=== PATIENT | female | born 1960 | race Caucasian/White ===

== ENCOUNTER 2016-11-12 07:37 | Emergency (ER) | payer OTHER ==
[2016-11-12 07:42] VITALS: RESP 17
--- NOTE | 2016-11-12 08:01 | EDPHY ---
H & P Stated Complaint: bit by her puppy 2nd digit r hand Time Seen by Provider: 11/12/16 07:44 HPI/ROS: CHIEF COMPLAINT: Dog bite HISTORY OF PRESENT ILLNESS: The patient presents to the ED with a dog bite to her right hand. She was bit by her puppy at home. The patient denies any numbness or weakness. She sustained a laceration to her right 2nd finger on the dorsal surface in between the ED IP and PIP. She denies additional acute complaints. Her tetanus shot is up-to-date. REVIEW OF SYSTEMS: A comprehensive 10 point review of systems is otherwise negative aside from elements mentioned in the history of present illness. Source: Patient Exam Limitations: No limitations - Personal History LMP (Females 10-55): Over 28 Days Ago Current Tetanus/Diphtheria Vaccine: Yes - Medical/Surgical History Hx Asthma: Yes Hx Chronic Respiratory Disease: No Hx Diabetes: No Hx Cardiac Disease: No Hx Renal Disease: No Hx Cirrhosis: No Hx Alcoholism: No Hx HIV/AIDS: No Hx Splenectomy or Spleen Trauma: No Other PMH: c sect - Social History Smoking Status: Never smoked - Physical Exam Exam: General: No acute distress Right hand: 1 cm laceration noted in between the DIP and PIP joint on the palmar aspect of the right 2nd finger. Neuro: Sensation intact to light touch Vascular: Normal capillary refill Constitutional: Initial Vital Signs Temperature (C) 36.9 C 11/12/16 07:40 Heart Rate 83 11/12/16 07:40 Respiratory Rate 17 11/12/16 07:40 Blood Pressure 136/89 H 11/12/16 07:40 O2 Sat (%) 98 11/12/16 07:40 O2 Delivery Mode Room Air Allergies/Adverse Reactions: amoxicillin Allergy (Verified 11/12/16 07:39) Home Medications: Medication Instructions Recorded Brianne Allergy 11/12/16 Celexa 11/12/16 Singulair 11/12/16 levOFLOXACIN [levAQUIN (*)] 750 mg PO DAILY #10 tab 11/12/16 metroNIDAZOLE [Flagyl 500 mg (*)] 500 mg PO TID #30 tab 11/12/16 Medical Decision Making Procedures: Procedure: Laceration repair. Verbal consent was obtained from the patient. The 1 cm laceration on the right 2nd finger was anesthetized using bupivacaine. The wound was irrigated copiously, draped and explored. There were no deep structures involved. No tendon injury was identified. The wound was repaired with 3 5-0 Ethilon sutures. The wound repair was simple. The procedure was performed by myself. ED Course/Re-evaluation: The patient presents to the ED with a dog bite/laceration to the right 2nd finger. Patient had her wound anesthetized with bupivacaine. Wound was copiously irrigated with a 18 gauge angiocatheter. Patient did undergo primary closure in the emergency department. The patient has been informed that this is a higher risk wound for infection. I have explained to her that there is no difference in outcomes between primary closure and delayed primary closure and that the risk of infection has been estimated to be 7-8%. The patient is allergic to amoxicillin. She will be started on Levaquin and Flagyl. The patient is advised to return to the ED immediately for any increased pain, redness, swelling, fever or other concerns as this may be the sign of an infection. Additionally, the patient will have her sutures removed in 12 days. The patient was placed in aluminum foam splint to the emergency department. Differential Diagnosis: Differential diagnosis considered includes laceration, nerve injury, tendon injury - Data Points Medications Given: Discontinued Medications Levofloxacin (Levaquin) 750 mg PO EDNOW ONE PRN Reason: Protocol Stop: 11/12/16 08:04 Last Admin: 11/12/16 08:40 Dose: 750 mg Metronidazole (Flagyl) 500 mg PO EDNOW ONE PRN Reason: Protocol Stop: 11/12/16 08:04 Last Admin: 11/12/16 08:41 Dose: 500 mg Departure - Departure Disposition: Home, Routine, Self-Care Clinical Impression: Finger laceration, Dog bite Condition: Good Instructions: Laceration (ED), Finger Laceration (ED) Additional Instructions: 1. Take antibiotics as directed. 2. Please wear splint as much as possible over next 10 days to promote tissue healing. 3. Please return to the ED for any redness, pain, fever or swelling. 4. There is a 7% chance that this type of laceration can become infected. Please return to the ED for any concerns. Referrals: Blanka Correa NP [Primary Care Provider] - As per Instructions Prescriptions: levOFLOXACIN [levAQUIN (*)] 750 mg PO DAILY #10 tab metroNIDAZOLE [Flagyl 500 mg (*)] 500 mg PO TID #30 tab
[2016-11-12] MEDS ORDERED: metroNIDAZOLE 500 MG TAB PO ONE (08:03)
[2016-11-12 08:59] VITALS: BP 119/78; PULSE 81; TEMP 98.2; O2SAT 96
== END 2016-11-12 08:58 | disposition home or self-care (01) ==
PROC: 0HQFXZZ Repair Right Hand Skin, External Approach (ICD-10-PCS; principal; 2016-11-12)
DX: S61.250A Open bite of right index finger without damage to nail, initial encounter (principal); S61.210A Laceration without foreign body of right index finger without damage to nail, initial encounter; W54.0XXA Bitten by dog, initial encounter; Y92.009 Unspecified place in unspecified non-institutional (private) residence as the place of occurrence of the external cause

== ENCOUNTER → 2017-02-10 | Outpatient (CLI) | payer OTHER | LOC: FIMAGING 08:58 | PROVIDERS: ATTEND Internal Medicine Pulmonary Disease | DX: R05 Cough (principal); R91.1 Solitary pulmonary nodule ==

== ENCOUNTER 2017-05-10 20:56 | Emergency (ER) | payer OTHER ==
[2017-05-10 21:14] VITALS: RESP 18; TEMP 98.4
--- NOTE | 2017-05-10 21:18 | EDPHY ---
H & P Stated Complaint: c/o RUQ pain since approx noon today, now radiating into back HPI/ROS: CHIEF COMPLAINT: Abdominal pain, cough HISTORY OF PRESENT ILLNESS: The patient is a 56 y/o female arriving with her complaining of epigastric and RUQ abdominal pain that began at noon today. She has asthma and has had a cough recently that is followed by pulmonology. She started azithromycin and a prednisone taper 4 days ago. Today she took 30mg prednisone 11:00, 10 hours ago. Within an hour she developed moderate pain under her ribcage. She took Mylanta, Zantac, and lactose thinking it could be reflux. She felt somewhat better after passing flatus. She had a bowel movement earlier today. Her pain has been waxing and waning; hovering around a 6/10 in severity for most of the day. This evening her pain worsened and is currently 8/ 10 in severity and radiating to her back. She has not taken anything for pain. She denies vomiting, diarrhea, dysuria, fever, chest pain, dyspnea. REVIEW OF SYSTEMS: A ten point review of systems was performed and is negative with the exception of the items mentioned in the HPI. 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 Works as a trauma nurse. Radiagraph Operator: Dr. Padilla General Appearance: Alert, uncomfortable-appearing. Vital signs reviewed. Blood pressure 172/100 at triage. Eyes: Pupils equal and round, no conjunctival injection, no discharge. Anicteric. ENT, Mouth: Mucous membranes are moist, no oropharyngeal erythema or edema. Neck: No lymphadenopathy, supple. Respiratory: Lungs are clear to auscultation; no wheezes, rales, or rhonchi. Cardiovascular: Regular rate and rhythm; no murmur, rub, or gallop. Gastrointestinal: Abdomen is soft and nontender, no masses or organomegaly, bowel sounds normal. Skin: Warm and dry, no rashes on exposed skin, normal color. Back: Nontender to palpation over the thoracolumbar spine. No CVAT. Extremities: No lower extremity edema, no calf tenderness or swelling. Neurological: Alert and oriented. Moving all four extremities easily and equally. Psychiatric: Normal affect. - Medical/Surgical History Hx Asthma: Yes Hx Chronic Respiratory Disease: No Hx Diabetes: No Hx Cardiac Disease: No Hx Renal Disease: No Hx Cirrhosis: No Hx Alcoholism: No Hx HIV/AIDS: No Hx Splenectomy or Spleen Trauma: No Other PMH: c sect, asthma, depression - Social History Smoking Status: Never smoked Constitutional: Initial Vital Signs Temperature (C) 36.9 C 05/10/17 21:10 Heart Rate 66 05/10/17 21:10 Respiratory Rate 18 05/10/17 21:10 Blood Pressure 172/100 H 05/10/17 21:10 O2 Sat (%) 96 05/10/17 21:10 O2 Delivery Mode Room Air Allergies/Adverse Reactions: amoxicillin Allergy (Verified 05/10/17 21:14) Home Medications: Medication Instructions Recorded Brianne Allergy 11/12/16 Celexa 11/12/16 Singulair 11/12/16 Albuterol 05/10/17 Breo Ellipta 200-25 Mcg INH 05/10/17 Famotidine [Pepcid] 20 mg PO BID #30 tablet 05/10/17 Medical Decision Making - Diagnostics Imaging Results: Imaging Impressions Abdomen X-Ray 05/10/17 22:07 Impression: 1. Constipation. 2. Nonspecific mild air distention of colon in the right upper quadrant. Abdomen Ultrasound 05/10/17 22:08 Impression: 1. No acute findings. 2. Probable mild fatty infiltration of the liver. Findings discussed with LAMAR NUÑEZ 05/10/2017 at 23:36. Imaging: I viewed and interpreted images myself ED Course/Re-evaluation: Cannot reproduce pain on palpation. Location of pain is concerning for cholecystitis/pancreatitis. I am also concerned about the possibility of peptic ulcer disease/duodenitis. I do not suspect appendicitis or ovarian pathology. She has no urinary signs or symptoms. Plan for IV, labs, and RUQ US. Will obtain supine and upright abdominal films to assess for free air. 0.5mg IV Dilaudid administered for pain. She is given Pepcid IV. Plain film shows constipation and mild colonic distention in the right upper quadrant. At 11:30 p.m. the ultrasound is in progress. I reviewed the labs. Her white blood cell count is normal. Differential Diagnosis: Abdominal pain including but not limited to appendicitis, cholecystitis, constipation, bowel obstruction, gastritis and urinary tract infection. - Data Points Laboratory Results: Laboratory Results 05/10/17 21:30 05/10/17 21:30 05/10/17 05/10/17 21:30 21:30 WBC 7.86 10^3/uL 10^3/uL (3.80-9.50) RBC 5.61 10^6/uL H 10^6/uL (4.18-5.33) Hgb 15.1 g/dL g/dL (12.6-16.3) Hct 45.1 % % (38.0-47.0) MCV 80.4 fL L fL (81.5-99.8) MCH 26.9 pg L pg (27.9-34.1) MCHC 33.5 g/dL g/dL (32.4-36.7) RDW 13.2 % % (11.5-15.2) Plt Count 271 10^3/uL 10^3/uL (150-400) MPV 10.3 fL fL (8.7-11.7) Neut % (Auto) 65.0 % % (39.3-74.2) Lymph % (Auto) 25.3 % % (15.0-45.0) [place] % (Auto) 8.5 % % (4.5-13.0) Eos % (Auto) 0.3 % L % (0.6-7.6) Baso % (Auto) 0.5 % % (0.3-1.7) Nucleat RBC Rel Count 0.0 % % (0.0-0.2) Absolute Neuts (auto) 5.11 10^3/uL 10^3/uL (1.70-6.50) Absolute Lymphs (auto) 1.99 10^3/uL 10^3/uL (1.00-3.00) Absolute Monos (auto) 0.67 10^3/uL 10^3/uL (0.30-0.80) Absolute Eos (auto) 0.02 10^3/uL L 10^3/uL (0.03-0.40) Absolute Basos (auto) 0.04 10^3/uL 10^3/uL (0.02-0.10) Absolute Nucleated RBC 0.00 10^3/uL 10^3/uL (0-0.01) Immature Gran % 0.4 % % (0.0-1.1) Immature Gran # 0.03 10^3/uL 10^3/uL (0.00-0.10) Sodium 140 mEq/L mEq/L (135-145) Potassium 4.2 mEq/L mEq/L (3.5-5.2) Chloride 103 mEq/L mEq/L (97-110) Carbon Dioxide 24 mEq/l mEq/l (22-31) Anion Gap 13 mEq/L mEq/L (8-16) BUN 18 mg/dL mg/dL (7-23) Creatinine 0.8 mg/dL mg/dL (0.6-1.0) Estimated GFR > 60 Glucose 114 mg/dL H mg/dL (70-100) Calcium 9.8 mg/dL mg/dL (8.5-10.4) Total Bilirubin 0.3 mg/dL mg/dL (0.1-1.4) Conjugated Bilirubin 0.2 mg/dL mg/dL (0.0-0.5) Unconjugated Bilirubin 0.1 mg/dL mg/dL (0.0-1.1) AST 38 IU/L IU/L (14-46) ALT 45 IU/L IU/L (9-52) Alkaline Phosphatase 75 IU/L IU/L (38-126) Total Protein 7.6 g/dL g/dL (6.3-8.2) Albumin 4.7 g/dL g/dL (3.5-5.0) Lipase 151 IU/L IU/L (23-300) Medications Given: Discontinued Medications Hydromorphone HCl (Dilaudid) 0.5 mg IVP EDNOW ONE Stop: 05/10/17 21:44 Last Admin: 05/10/17 21:52 Dose: 0.5 mg Famotidine/Sodium Chloride (Pepcid 20 Mg (Premix)) 50 mls @ 200 mls/hr IV EDNOW ONE Stop: 05/10/17 23:24 Last Admin: 05/10/17 23:17 Dose: 50 mls Departure - Departure Disposition: Home, Routine, Self-Care Clinical Impression: Abdominal pain Qualifiers: Abdominal location: right upper quadrant Qualified Code(s): R10.11 - Right upper quadrant pain Condition: Good Instructions: Constipation (ED), Acute Abdominal Pain (ED), Duodenitis (ED) Additional Instructions: Try Pepcid 20 mg twice daily. Increase fiber, water in diet. Try Miralax daily to promote bowel movements. If you have severe pain tonight you can use the [place]. As you know, each tablet contains hydrocodone (an opiate pain medication) and tylenol. Return for severe persistent pain, fever, vomiting, any new or concerning symptoms. Referrals: Blanka Correa NP [Primary Care Provider] - As per Instructions Prescriptions: Famotidine [Pepcid] 20 mg PO BID #30 tablet Report Scribed for: Lamar Nuñez Report Scribed by: Felicia Irvin Date of Report: 05/10/17 Time of Report: 22:53 Physician Review and Approval Statement: 05/10/17 21:18 Portions of this note were transcribed by the certified medical aide. I, Dr. Lamar Nuñez, personally performed the history, physical exam, and medical decision- making; and confirmed the accuracy of the information in the transcribed note.
[2017-05-10] MEDS ORDERED: HYDROmorphONE/DILAUDID 1 MG/ML INJ IVP ONE (21:43)
[2017-05-10 21:55] LABS: PLATELET COUNT 271 10^3/uL (150-400)
[2017-05-10] MEDS ORDERED: FAMOTIDINE 20 MG/NACL 50 ML IV ONE (23:10)
[2017-05-11 00:11] VITALS: BP 126/87; PULSE 71; O2SAT 96
== END 2017-05-11 00:13 | disposition home or self-care (01) ==
DX: R10.11 Right upper quadrant pain (principal); J45.909 Unspecified asthma, uncomplicated
CPT/HCPCS: 96374; J1170